=== PATIENT | female | born 1940 | race Asian ===

== ENCOUNTER 2020-02-26 10:49 | Emergency (ER) | payer MEDICAID ==
[~2020-02-26] VITALS: Ht 160 cm; Wt 71.0 kg
[2020-02-26 12:56] LABS: EOSINOPHILS % 0.2 % (0.0-5.0); HEMATOCRIT. 21.2 % (36.0-48.0); LYMPHOCYTES % 16.2 % (20.0-50.0); MEAN CORPUSCULAR HEMOGLOBIN 21.7 pg (28.0-32.0); MEAN CORPUSCULAR VOLUME 73.5 fL (81.0-99.0); MEAN PLATELET VOLUME 8.4 fl (7.4-10.4); MONOCYTES % 9.2 % (2.0-8.0); NEUTROPHILS % 73.4 % (40.0-76.0); PLATELET 433 x1000/uL (130-400); RED BLOOD CELL COUNT 2.89 mill/uL (4.2-5.4); RED CELL DISTRIBUTION WIDTH 21.7 % (11.6-14.6)
[2020-02-26 12:58] LABS: HEMOGLOBIN. 6.3 g/dL (12.0-16.0)
[2020-02-26 13:00] LABS: CHLORIDE 105 mEq/L (98-107)
[2020-02-26 14:11] LABS: PROTHROMBIN TIME 10.4 sec (9.6-11.0)
[2020-02-26 16:30] LABS: CLARITY URINE CLEAR (CLEAR); COLOR URINE YELLOW (YELLOW); KETONES URINE NEGATIVE (NEGATIVE); LEUKOCYTE ESTERASE URINE 2+ (NEGATIVE); NITRITE URINE POSITIVE (NEGATIVE); OCCULT BLOOD URINE NEGATIVE (NEGATIVE); PH URINE 5.5 (4.5-8.0); PROTEIN URINE NEGATIVE (NEGATIVE); SPECIFIC GRAVITY URINE 1.009 (1.005-1.030)
[2020-02-26 18:15] LABS: HEMOGLOBIN 7.3 g/dL (12.0-16.0)
[2020-02-26] MEDS ORDERED: CEFAZOLIN 1000MG PREMIX 50 ML IV ONE (19:00)
[2020-02-27 00:05] VITALS: BP 141/49
== END 2020-02-27 00:39 | disposition short-term general hospital (02) ==
LOC: ER 10:49 → CANBEDREQ 15:05 → ER 02-27 00:39
DX: D64.9 Anemia, unspecified (principal); N39.0 Urinary tract infection, site not specified; E11.9 Type 2 diabetes mellitus without complications; I10 Essential (primary) hypertension; E78.00 Pure hypercholesterolemia, unspecified
CPT/HCPCS: 36415; 71045; 80053; 81003; 82270; 83690; 85014; 85018; 85025; 85610; 86850; 86900; 86901; 86920; 87077; 87086; 87186; 93005; 96365; 99285; J0690; P9016